=== PATIENT | male | born 1935 | race Caucasian/White ===

== ENCOUNTER 2019-02-10 15:00 | Inpatient (IN) | payer MEDICARE ==
[~2019-02-10] VITALS: Ht 182.9 cm; Wt 96.6 kg
[~2019-02-10 15:00] MED LIST: ACTOS30 MG PO; ACTOS45 MG PO; ADVAIR DISK1 INH; ALBUTEROL S2.5 MG/.5 IN; ALTACE10 MG PO; ALTACE5 MG PO; AUGMENTIN875TAB OR; BAYER LOW81 MG PO; CALCIUM 500 PO; CALCIUM500 M1 PO; CLORTAB PO; EQL ASPIRIN LOW81 M1 PO; FERRETTS325 MG PO; FOSAMAX PLUS PO; FOSAMAX10 MG PO; IRON325 MG PO; LYSINE1000 MG PO; METOPROL TAR25 MG PO; METOPROLOL TART25 MG PO; MULTI VIT PO; MULTIVITAMI1 PO; NITROQUICK0.4 MG; NITROSTAT0.4 MG SL; PEPCID PO; PEPCID20 MG PO; PLAVIX75 MG PO; PRAVACHOL80 MG PO; SIMVASTATIN40 MG PO; SYNTHROID100 MCG PO; TYLENOL500 MG PO; ZETIA10 MG PO
--- NOTE | 2019-02-10 15:30 | NUR ---
PT TO ROOM VIA WC ABLE TO TRANSFER SELF
--- NOTE | 2019-02-10 15:49 | NUR ---
PT RESTING QUIETLY ON STRETCHER.
[2019-02-10] MEDS ORDERED: PROAIR DIG108 MCG/AC IN (16:29)
[2019-02-10] MEDS ORDERED: CLOPIDOGREL75 MG PO (16:29)
[2019-02-10] MEDS ORDERED: ADVAIR DISK1 IN (16:30)
[2019-02-10] MEDS ORDERED: LIPITOR40 M1 PO (16:30)
--- NOTE | 2019-02-10 16:35 | NUR ---
WHILE TALKING TO PT, PT STATES THIS SOB HAS BEEN GOING ON FOR SEVERAL DAYS, ESPECIALLY WHEN UP AND WALKING, DENIES ANY CHEST PAIN, STATES THE ONLY TIME HE HAS CHEST PAIN IS AFTER HE HAS SNEEZED.
--- NOTE | 2019-02-10 16:36 | NUR ---
PT UP WALKING AROUND SATS 91%.
[2019-02-10 16:44] LABS: HEMATOCRIT 38.2 % (39.0-50.0); HEMOGLOBIN 12.2 g/dl (14.0-18.0); IMMATURE GRANULOCYTES 0.3 % (0.0-5.0); MEAN CELL VOLUME 88.6 fL CALC (80.0-100.0); MEAN CORPUSCULAR HGB 28.3 pG CALC (26.0-32.0); MEAN CORPUSCULAR HGB CONC 31.9 g/L CALC (32.0-36.0); NEUT# 6.46 thou/uL (1.82-7.42); RED BLOOD COUNT 4.31 mill/uL (4.70-6.10); RED CELL DISTRI WIDTH 13.6 % (11.5-15.5)
[2019-02-10 16:55] LABS: CREATININE 2.5 mg/dL (0.7-1.3)
[2019-02-10 16:56] LABS: POTASSIUM 5.4 mmol/l (3.5-5.1)
--- NOTE | 2019-02-10 17:52 | NUR ---
PT SITTING UP ON STRETCHER, WATCHING TV, NO CHEST PAIN, SATS REMAIN 94%.
--- NOTE | 2019-02-10 18:00 | NUR ---
IV FLUIDS INFUSING, FRIENDS VISITING WITH PT, PT IS LAUHGING AND TALKING WITH FRIENDS HE IS SITTING ON SIDE OF BED. DENIES ANY CHEST PAIN
--- NOTE | 2019-02-10 19:00 | NUR ---
REPORT GIVEN TO MED SURG FLOOR FOR CONTINUATION OF CARE
--- NOTE | 2019-02-10 19:30 | NUR ---
PATIENT TO FLOOR VIA WHEELCHAIR. ON MONITOR WITH RN
[2019-02-10 19:32] VITALS: BP 179/59
[2019-02-11] VITALS (9 sets, daily range): BP systolic 115–157; BP diastolic 38–58
--- NOTE | 2019-02-11 01:53 | NUR ---
ED CALLED ABOUT RHYTHM CHANGE AFIB, EKG ORDERED.
--- NOTE | 2019-02-11 02:30 | NUR ---
INFORMED DR. PACHECO OF THE NEW ONSET AFIB, AND PATIENT IS ASYMPTOMATIC, PATIENT STATED THAT HE DOES NOT KNOW HE HAD HX OF AFIB BEFORE, NO NEW ORDERS MADE AT THIS TIME, WILL CONTINUE TO MONITOR.
--- NOTE | 2019-02-11 03:54 | NUR ---
ED CALLED PATIENT HR 40'S, ASSESSED PATIENT WAS SLEEPING, APICAL HEART RATE 54BPM, DENIE PAIN OR DISCOMFORTS, CALLED ED PATIENT BACK TO HR 58.
--- NOTE | 2019-02-11 04:45 | NUR ---
APPLIED O2 @ 2LPM VIA NC AT THIS TIME, POX 90-91% ON RA, CRAKLES NOTED ON BOTH LOWER LOBES.
--- NOTE | 2019-02-11 06:33 | NUR ---
INFORMED ABOUT PATIENT NEW ONSET FOR AFIB, AND HEART RATE 40'S NO ORDERS MADE AT THIS TIME.
--- NOTE | 2019-02-11 07:00 | NUR ---
REPORT RECEIVED FROM ABE NGUYEN;PT RESTING IN SUPINE POSITION;INTRODUCED SELF TO PT AND POC DISCUSSED;RESPIRATIONS EVEN AND UNLABORED ON O2 @ 2L VIA NC;PT DENIES ANY CURRENT PAIN OR DISCOMCOFTRS;TELE MONITORING IN PLACE;PT ENCOURAGED TO CALL FOR ASSISTANCE IF NEEDED;FALL PRECAUTIONS IN PLACE WITH BED IN THE LOWEST POSITION AND CALL LIGHT IN REACH;WILL CONTINUE TO MONITOR
--- NOTE | 2019-02-11 08:00 | NUR ---
PT RESTING IN SEMI FOWLERS POSITION,A&O X3 AND HARD OF HEARING;VS OBTAINED AND ASSESSMENT COMPLETED;PT DENIES ANY CURRENT PAIN OR DISCOMFORTS,PAIN SCALE AND REPORTING EDUCATED;RESPIRATIONS EVEN AND UNLABORED,SHALLOW ON O2 @ 2L VIA NC,COARSE/CRACKLES NOTED AND NON-PRODUCTIVE COUGH AT TIMES;ABDOMEN SOFT ON PALPATION AND ACTIVE IN ALL 4 QUADRANTS;WEAK PEDAL PULSES;SKIN INTACT;TELE MONITORING IN PLACE;#20G TO RAC FLUSHED AND PATENT,SITE APPEARS HEALTHY;PT DENIES ANY ADDITIONAL NEEDS AT THIS TIME AND IS ENCOURAGED TO CALL FOR ASSISTANCE IF NEEDED;FALL PRECAUTIONS IN PLACE WITH BED IN THE LOWEST POSITION AND CALL LIGHT IN REACH;WILL CONTINUE TO MONITOR
--- NOTE | 2019-02-11 08:40 | NUR ---
PT TRANSPORTED TO [facility] IN STABLE CONDITION VIA WHEELCHAIR ACCOMPANIED BY VOLUNTEER.
--- NOTE | 2019-02-11 09:20 | NUR ---
PT ARRIVED BACK TO MED/SURG ROOM 271 IN STABLE CONDITION VIA WHEELCHAIR ACCOMPANIED BY VOLUNTEER.
[2019-02-11 11:00] LABS: HEMATOCRIT 33.7 % (39.0-50.0); HEMOGLOBIN 10.9 g/dl (14.0-18.0); MEAN CELL VOLUME 87.8 fL CALC (80.0-100.0); MEAN CORPUSCULAR HGB 28.4 pG CALC (26.0-32.0); MEAN CORPUSCULAR HGB CONC 32.3 g/L CALC (32.0-36.0); RED BLOOD COUNT 3.84 mill/uL (4.70-6.10); RED CELL DISTRI WIDTH 13.9 % (11.5-15.5)
[2019-02-11 11:26] LABS: CREATININE 2.6 mg/dL (0.7-1.3); MAGNESIUM 2.2 mg/dL (1.6-2.3)
--- NOTE | 2019-02-11 13:00 | NUR ---
PT RESTING IN SEMI FOWLERS POSITION;RESPIRATIONS EVEN AND UNLABORED ON O2 @ 2L VIA NC;PT DENIES ANY CURRENT PAIN BUT REQUESTS MEDICATION FOR GERD,BIBI SAUNDERS TO BE NOTIFIED OF REQUEST;TELE MONITORING IN PLACE;IV SITE PATENT;PT DENIES ANY ADDITIONAL NEEDS AT THIS TIME AND IS ENCOURAGED TO CALL FOR ASSISTANCE IF NEEDED;CALL LIGHT IN REACH;WILL CONTINUE TO MONITOR
--- NOTE | 2019-02-11 15:30 | NUR ---
PT RESTING IN SEMI FOWLERS POSITION;RESPIRATIONS EVEN AND UNLABORED ON O2 @ 2L VIA NC;PT DENIES ANY CURRENT PAIN OR DISCOMFORTS;TELE MONITORING IN PLACE;IV SITE PATENT;ASSESSMENT REMAINS UNCHANGED AT THIS TIME;FALL PRECAUTIONS IN PLACE WITH BED IN THE LOWEST POSITION AND CALL LIGHT IN REACH;WILL CONTINUE TO MONITOR
--- NOTE | 2019-02-11 19:30 | NUR ---
REPORT FROM YUVAL DALTON. PT RESTING IN BED WATCHING TV. NO APPARENT DISTRESS NOTED. PT ALERT AND ORIENTED. DENIES ANY PAIN OR DISCOMFORT. IV SITE APPEARS HEALTHY. TOMATO GRADER IN PLACE. DISCUSSED POC. PT VERBALIZED UNDERSTANDING. CALL LIGHT WITHIN REACH. WILL CONTINUE TO MONITOR.
--- NOTE | 2019-02-11 23:22 | NUR ---
PT RESTING IN BED WITH EYES CLOSED. NO APPARENT DISTRESS NOTED. CALL LIGHT WITHIN REACH. WILL CONTINUE TO MONITOR.
[2019-02-12 00:30] VITALS: BP 142/68
--- NOTE | 2019-02-12 03:02 | NUR ---
PT RESTING IN BED WITH EYES CLOSED. NO APPARENT DISTRESS NOTED. CALL LIGHT WITHIN REACH. WILL CONTINUE TO MONITOR.
[2019-02-12 04:00] VITALS: BP 129/54
[2019-02-12 04:48] LABS: HEMATOCRIT 31.6 % (39.0-50.0); HEMOGLOBIN 10.3 g/dl (14.0-18.0); IMMATURE GRANULOCYTES 0.3 % (0.0-5.0); MEAN CELL VOLUME 87.5 fL CALC (80.0-100.0); MEAN CORPUSCULAR HGB 28.5 pG CALC (26.0-32.0); MEAN CORPUSCULAR HGB CONC 32.6 g/L CALC (32.0-36.0); NEUT# 4.42 thou/uL (1.82-7.42); RED BLOOD COUNT 3.61 mill/uL (4.70-6.10); RED CELL DISTRI WIDTH 13.9 % (11.5-15.5)
[2019-02-12 05:09] LABS: CREATININE 2.5 mg/dL (0.7-1.3); MAGNESIUM 2.1 mg/dL (1.6-2.3); POTASSIUM 4.1 mmol/l (3.5-5.1)
[2019-02-12 08:00] VITALS: BP 138/57
--- NOTE | 2019-02-12 09:00 | NUR ---
ASSESSMENT IS COMPLETED: IV SITE IS FREE FROM REDNESS OR EDMEA. HR IS IRREG, PULSES ARE STRONG X4, ABD IS SOFT WITH ACTIVE BS. BREATH SOUNDS ARE COARSE AND CLEAR, TELE MONITOR IN PLACE.
--- NOTE | 2019-02-12 09:57 | NUR ---
PATIENT PERFORMED GAIT TRAINING, 400 FEET, SBA FOR SAFETY. PT INSTRUCTED TO INCORPORATE DDBE TO SUSTAIN PROLONGED AMBULATION WITHOUT S/SX OF SOB. PT ALSO EDUCATED PATIENT ON PACING TECHNIQUE FOR SAFETY. AMPA = 19
[2019-02-12 11:30] VITALS: BP 129/60
--- NOTE | 2019-02-12 12:50 | NUR ---
PT IS RELAXING IN BED WITH NO DISTRESS NTOED. IV SITE WAS RESTARTED BY Jeanine FISH WITH 22 IN RFA. AFTER 2 UNSUCCESSFUL ATTENPTS. CONITNUE TO OBSERVE AND MONITOR.
[2019-02-12 15:10] VITALS: BP 120/58
[2019-02-12] MEDS ORDERED: TOPROL XL25 M1 PO (16:09)
[2019-02-12] MEDS ORDERED: ELIQUIS2.5 MG PO (16:09)
[2019-02-12] MEDS ORDERED: JANUVIA25 MG PO (16:09)
--- NOTE | 2019-02-12 16:30 | NUR ---
PT IS ATTEMPTING TO REACH SOMEONE TO PICK HIM UP FOR DISCHARGE. CONTINUE TO OSBERVE AND MONITOR.
--- NOTE | 2019-02-12 17:19 | NUR ---
PT'S IV SITE DISCONTINUED CATHETER INTACT. NO REDNESS OR EDEMA. DISCHARGE INSTRUCTIONS GIVEN AND VERBALIZED UNDERSTANDING. Discharge instructions given. Patient verbalizes understanding of same. Discharged in stable condition via Wheelchair to Home with family. All belongings sent with pt.
== END 2019-02-12 17:09 | disposition home or self-care (01) | DRG 309 ==
LOC: ED 15:00 → ED-I 18:19 → ED 18:32 → MS2 18:33
PROVIDERS: Family Medicine; Nurse Practitioner Family; ADMIT Internal Medicine; ATTEND Internal Medicine
DX: I48.91 Unspecified atrial fibrillation (principal); N18.4 Chronic kidney disease, stage 4 (severe); J06.9 Acute upper respiratory infection, unspecified; I12.9 Hypertensive chronic kidney disease with stage 1 through stage 4 chronic kidney disease, or unspecified chronic kidney disease; E11.22 Type 2 diabetes mellitus with diabetic chronic kidney disease; D63.1 Anemia in chronic kidney disease; E11.65 Type 2 diabetes mellitus with hyperglycemia; R00.1 Bradycardia, unspecified; E78.5 Hyperlipidemia, unspecified; I25.10 Atherosclerotic heart disease of native coronary artery without angina pectoris; E03.9 Hypothyroidism, unspecified; H91.90 Unspecified hearing loss, unspecified ear; Z95.5 Presence of coronary angioplasty implant and graft; Z87.891 Personal history of nicotine dependence; Z95.1 Presence of aortocoronary bypass graft; Z95.3 Presence of xenogenic heart valve
CPT/HCPCS: G0378

== ENCOUNTER 2019-04-11 09:10 | Inpatient (IN) | payer MEDICARE ==
[~2019-04-11] VITALS: Ht 182.9 cm; Wt 95.0 kg
[2019-04-11] VITALS (12 sets, daily range): BP systolic 148–200; BP diastolic 67–103
[~2019-04-11 09:10] MED LIST changes: +ADVAIR DISK1 IN; +CLOPIDOGREL75 MG PO; +ELIQUIS2.5 MG PO; +JANUVIA25 MG PO; +LIPITOR40 M1 PO; +PROAIR DIG108 MCG/AC IN; +TOPROL XL25 M1 PO
[2019-04-11 09:40] LABS: IMMATURE GRANULOCYTES 0.2 % (0.0-5.0); MEAN CELL VOLUME 88.3 fL CALC (80.0-100.0); MEAN CORPUSCULAR HGB 28.1 pG CALC (26.0-32.0); MEAN CORPUSCULAR HGB CONC 31.8 g/L CALC (32.0-36.0); NEUT# 3.05 thou/uL (1.82-7.42); RED BLOOD COUNT 4.52 mill/uL (4.70-6.10); RED CELL DISTRI WIDTH 14.7 % (11.5-15.5)
[2019-04-11 09:42] LABS: HEMATOCRIT 39.9 % (39.0-50.0); HEMOGLOBIN 12.7 g/dl (14.0-18.0)
[2019-04-11 09:53] LABS: ALBUMIN 3.8 g/dL (3.2-5.0); POTASSIUM 4.6 mmol/l (3.5-5.1); TOTAL PROTEIN 6.7 g/dL (6.3-8.2)
[2019-04-11 09:55] LABS: BILIRUBIN, TOTAL 0.8 mg/dL (0.0-1.4)
[2019-04-11 19:55] LABS: URINE BILIRUBIN - DIPSTICK NEGATIVE (NEGATIVE); URINE BLOOD DIPSTICK SMALL (NEGATIVE); URINE CLARITY CLEAR; URINE COLOR YELLOW; URINE GLUCOSE - DIPSTICK NEGATIVE (NEGATIVE); URINE KETONE NEGATIVE (NEGATIVE); URINE LEUK ESTERASE NEGATIVE (Negative); URINE NITRITE - DIPSTICK NEGATIVE (Negative); URINE PH 5.5 (4.5-8.0); URINE PROTEIN - DIPSTICK >=300 mg/dL (NEG-TRACE); URINE SPECIFIC GRAVITY 1.025; URINE UROBILINOGEN - DIPSTICK 0.2 E.U./dL (0.2)
[2019-04-11 20:07] LABS: URINE SQUAMOUS EPITHELIAL CELL FEW EPI/hpf (0-FEW)
[2019-04-12] VITALS (54 sets, daily range): BP systolic 128–190; BP diastolic 57–106
[2019-04-12 08:06] LABS: HEMATOCRIT 35.2 % (39.0-50.0); HEMOGLOBIN 11.2 g/dl (14.0-18.0); IMMATURE GRANULOCYTES 0.2 % (0.0-5.0); MEAN CELL VOLUME 87.3 fL CALC (80.0-100.0); MEAN CORPUSCULAR HGB 27.8 pG CALC (26.0-32.0); MEAN CORPUSCULAR HGB CONC 31.8 g/L CALC (32.0-36.0); NEUT# 5.87 thou/uL (1.82-7.42); RED BLOOD COUNT 4.03 mill/uL (4.70-6.10); RED CELL DISTRI WIDTH 14.6 % (11.5-15.5)
[2019-04-13 04:33] VITALS: BP 153/75
[2019-04-13 08:25] VITALS: BP 163/79
[2019-04-13 08:45] LABS: HEMATOCRIT 33.9 % (39.0-50.0); HEMOGLOBIN 11.1 g/dl (14.0-18.0); MEAN CELL VOLUME 86.9 fL CALC (80.0-100.0); MEAN CORPUSCULAR HGB 28.5 pG CALC (26.0-32.0); MEAN CORPUSCULAR HGB CONC 32.7 g/L CALC (32.0-36.0); RED BLOOD COUNT 3.9 mill/uL (4.70-6.10); RED CELL DISTRI WIDTH 14.8 % (11.5-15.5)
[2019-04-13 09:26] LABS: CREATININE 2.2 mg/dL (0.7-1.3); MAGNESIUM 2.2 mg/dL (1.6-2.3); POTASSIUM 4.2 mmol/l (3.5-5.1)
[2019-04-13 11:45] VITALS: BP 139/70
[2019-04-13 16:00] VITALS: BP 141/63
[2019-04-13 19:15] VITALS: BP 136/58
[2019-04-13 23:36] VITALS: BP 141/65
[2019-04-14 04:38] VITALS: BP 147/48
[2019-04-14 05:41] LABS: HEMATOCRIT 32.3 % (39.0-50.0); HEMOGLOBIN 10.3 g/dl (14.0-18.0); MEAN CELL VOLUME 87.8 fL CALC (80.0-100.0); MEAN CORPUSCULAR HGB CONC 31.9 g/L CALC (32.0-36.0); RED BLOOD COUNT 3.68 mill/uL (4.70-6.10); RED CELL DISTRI WIDTH 14.9 % (11.5-15.5)
[2019-04-14 05:44] LABS: PROTHROMBIN TIME 10.7 SECONDS (9.0-12.5)
[2019-04-14 05:52] LABS: CREATININE 2.3 mg/dL (0.7-1.3); POTASSIUM 3.8 mmol/l (3.5-5.1)
[2019-04-14 09:30] VITALS: BP 127/65
[2019-04-14 10:50] VITALS: BP 122/64
[2019-04-14 15:48] VITALS: BP 131/66
[2019-04-14 19:23] VITALS: BP 125/59
[2019-04-15 00:07] VITALS: BP 143/66
[2019-04-15 04:50] VITALS: BP 146/66
[2019-04-15 05:51] LABS: CREATININE 2.2 mg/dL (0.7-1.3)
[2019-04-15 05:58] LABS: ALBUMIN 2.7 g/dL (3.2-5.0)
[2019-04-15 07:24] VITALS: BP 125/65
[2019-04-15 11:32] VITALS: BP 126/61
[2019-04-15 14:55] VITALS: BP 136/59
[2019-04-15 19:35] VITALS: BP 143/58
[2019-04-16 00:12] VITALS: BP 125/49
[2019-04-16 03:33] VITALS: BP 165/66
[2019-04-16 05:15] LABS: HEMATOCRIT 30.4 % (39.0-50.0); HEMOGLOBIN 9.6 g/dl (14.0-18.0); MEAN CELL VOLUME 87.9 fL CALC (80.0-100.0); MEAN CORPUSCULAR HGB 27.7 pG CALC (26.0-32.0); MEAN CORPUSCULAR HGB CONC 31.6 g/L CALC (32.0-36.0); RED BLOOD COUNT 3.46 mill/uL (4.70-6.10); RED CELL DISTRI WIDTH 14.6 % (11.5-15.5)
[2019-04-16 05:42] LABS: CREATININE 2.3 mg/dL (0.7-1.3); MAGNESIUM 2.3 mg/dL (1.6-2.3); POTASSIUM 4.2 mmol/l (3.5-5.1)
[2019-04-16 07:39] VITALS: BP 155/72
[2019-04-16] MEDS ORDERED: AMLODIPINE BESYL5 MG PO (10:27)
[2019-04-16] MEDS ORDERED: LASIX 40 MG TAB40 MG PO (10:30)
[2019-04-16 10:32] VITALS: BP 149/66
== END 2019-04-16 12:30 | disposition home or self-care (01) | DRG 291 ==
LOC: ED 09:10 → ED-I 09:56 → ED 12:34 → MS2 12:35 → ICU 12:35 → MS2 04-12 13:13
PROVIDERS: Family Medicine; Internal Medicine Nephrology; Nurse Practitioner Family; ADMIT Internal Medicine; ATTEND Internal Medicine
DX: I13.0 Hypertensive heart and chronic kidney disease with heart failure and stage 1 through stage 4 chronic kidney disease, or unspecified chronic kidney disease (principal); I50.31 Acute diastolic (congestive) heart failure; J18.9 Pneumonia, unspecified organism; N17.9 Acute kidney failure, unspecified; I48.19 Other persistent atrial fibrillation; E87.1 Hypo-osmolality and hyponatremia; E11.22 Type 2 diabetes mellitus with diabetic chronic kidney disease; N18.3 Chronic kidney disease, stage 3 (moderate); I25.10 Atherosclerotic heart disease of native coronary artery without angina pectoris; I49.5 Sick sinus syndrome; D63.1 Anemia in chronic kidney disease; E78.5 Hyperlipidemia, unspecified; E03.9 Hypothyroidism, unspecified; I25.5 Ischemic cardiomyopathy; I25.2 Old myocardial infarction; Z95.3 Presence of xenogenic heart valve; Z87.891 Personal history of nicotine dependence; Z79.01 Long term (current) use of anticoagulants; Z95.5 Presence of coronary angioplasty implant and graft; Z95.1 Presence of aortocoronary bypass graft; Z79.82 Long term (current) use of aspirin
CPT/HCPCS: G0378; J0692; Q9967

== ENCOUNTER 2021-03-08 01:46 | Observation (INO) | payer MEDICARE ==
[~2021-03-08] VITALS: Ht 182.9 cm; Wt 84.0 kg
[~2021-03-08 01:46] MED LIST changes: +AMLODIPINE BESYL5 MG PO; +LASIX 40 MG TAB40 MG PO
--- NOTE | 2021-03-08 01:46 | NUR ---
PT TO ROOM 6 IN ER VIA EMS.
[2021-03-08 02:27] LABS: HEMATOCRIT 37.3 % (39.0-50.0); HEMOGLOBIN 11.9 g/dl (14.0-18.0); IMMATURE GRANULOCYTES 0.4 % (0.0-5.0); MEAN CORPUSCULAR HGB 28.4 pG CALC (26.0-32.0); MEAN CORPUSCULAR HGB CONC 31.9 g/dL CAL (32.0-36.0); NEUT# 6.14 thou/uL (1.82-7.42); RED BLOOD COUNT 4.19 mill/uL (4.70-6.10); RED CELL DISTRI WIDTH 14.9 % (11.5-15.5)
[2021-03-08 02:40] LABS: BILIRUBIN, TOTAL 0.7 mg/dL (0.0-1.4); CREATININE 3.8 mg/dL (0.7-1.3); POTASSIUM 4.7 mmol/l (3.5-5.1); TOTAL PROTEIN 7.3 g/dL (6.3-8.2)
[2021-03-08 02:56] LABS: ALBUMIN 3.9 g/dL (3.2-5.0)
--- NOTE | 2021-03-08 05:00 | NUR ---
RESTING. RESP SOMEWHAT EASIER.
--- NOTE | 2021-03-08 06:00 | NUR ---
PT AWAKE IN ROOM. GINGERALE GIVEN.
[2021-03-08 06:38] LABS: URINE BILIRUBIN - DIPSTICK NEGATIVE (NEGATIVE); URINE BLOOD DIPSTICK TRACE-INTACT (NEGATIVE); URINE COLOR YELLOW; URINE GLUCOSE - DIPSTICK NEGATIVE (NEGATIVE); URINE KETONE NEGATIVE (NEGATIVE); URINE LEUK ESTERASE NEGATIVE (NEGATIVE); URINE PH 6.5 (4.5-8.0); URINE PROTEIN - DIPSTICK 30 mg/dL (NEG-TRACE); URINE SPECIFIC GRAVITY 1.015; URINE UROBILINOGEN - DIPSTICK 0.2 E.U./dL (0.2)
[2021-03-08 06:39] LABS: URINE NITRITE - DIPSTICK NEGATIVE (Negative)
--- NOTE | 2021-03-08 07:00 | NUR ---
RECEIVED REPORT FROM DAVID FISH
[2021-03-08 07:05] LABS: URINE BACTERIA FEW hpf; URINE EPITHELIAL CELLS FEW EPI/hpf (0-FEW)
--- NOTE | 2021-03-08 09:18 | NUR ---
DR JIMENEZ AT BEDSIDE TO DISCUSS RESULTS AND POC
[2021-03-08] MEDS ORDERED: FAMOTIDINE20 M1 PO (11:39)
[2021-03-08] MEDS ORDERED: NORVASC5 M1 PO (11:39)
[2021-03-08] MEDS ORDERED: JANUVIA25 MG PO (11:39)
[2021-03-08] MEDS ORDERED: L-LYSINE500 M3 PO (11:40)
[2021-03-08] MEDS ORDERED: CHLOR-TRIMETON4 MG PO (11:40)
[2021-03-08] MEDS ORDERED: FLOVENT DI50 MCG/BLI IN (11:41)
[2021-03-08] MEDS ORDERED: MECLIZINE25 MG PO (11:42)
[2021-03-08] MEDS ORDERED: PROAIR RES108 MCG/AC IN (11:43)
[2021-03-08] MEDS ORDERED: ISOSORB MONO30 MG PO (11:43)
[2021-03-08] MEDS ORDERED: TORSEMIDE20 M1 PO (11:44)
[2021-03-08] MEDS ORDERED: TOPROL XL25 M1 PO (11:44)
--- NOTE | 2021-03-08 12:42 | NUR ---
RESTING QUIETLY WITH EYES CLOSED, AWAKENS EASILY, DENIES NEEDS AT THIS TIME. CALL LIGHT WITHIN REACH
--- NOTE | 2021-03-08 13:13 | NUR ---
REPORT RECIEVED FROM ANILA
--- NOTE | 2021-03-08 13:29 | NUR ---
REPORT CALLED TO ANTHONY FISH
--- NOTE | 2021-03-08 14:04 | NUR ---
PT ARRIVED TO UNIT AT THIS TIME. VIA STRETCHER WITH ABE HORNE. ORIENTATED PT TO ROOM. PT IS VERY HARD OF HEARING. SAYS HE HAS HEARING AIDES AT HOME. DID NOT BRING IT WITH HIM. ASSESSMENT AND VITALS WERE DONE AT THIS TIME. PT IS A&OX3, LUNG SOUNDS ARE CLEAR UPPER/LOWER LOBES ANTERIOR AND POSTERIOR. HEART SOUNDS ARE IRREGULAR. TELE MONITOR IS IN PLACE. UNIT# [id number]. CONTINOUS MONITORING BY ED. CORWIN SOUNDS ACTIVE X4. RADIAL PULSES STRONG BILATERALLY PEDAL PULSE STRONG BILATERALLY. IV LOCATED ON THE LA 16G, FLUSHED WITH NO RESISTANCE. SKIN IS WD. PT STATES NO PAIN AT THIS TIME. STATES NO OTHER NEEDS AT THIS TIME. CALL LIGHT WITHIN REACH. FALL/SAFTEY PRECAUTIONS IN PLACE.
--- NOTE | 2021-03-08 14:05 | NUR ---
TO MED SURG VIA STRETCHER, TELE MONITOR IN PLACE.
[2021-03-08 15:00] VITALS: BP 142/69
[2021-03-08 19:00] VITALS: BP 119/61
--- NOTE | 2021-03-08 20:00 | NUR ---
PHYSICAL ASSESMENT COMPLETE. PT C/O COUGHING WILL; WILL PROVIDE PRN ROBITUSSIN. SCHEDULED MEDICATIONS AND PRN MEDICATION ADMINISTERED, SEE E-MAR. PT DENIES ANY NEEDS AT THIS TIME. PLAN OF CARE REVIEWED, PT DENIES QUESTIONS, VERBALIZES UNDERSTANDING. ITEMS WITHIN REACH, BED LOCKED IN LOW POSITION W/ BEDRAILS UP X2. CALL WHITESIDE WITHIN REACH, AGREES TO CALL PRN.
--- NOTE | 2021-03-08 22:29 | NUR ---
PHYSICAL ASSESMENT COMPLETE. PT CURRENTLY DENIES PAIN OR DISCOMFORT. SCHEDULED MEDICATIONS AND PRN MEDICATION ADMINISTERED, SEE E-MAR. PT DENIES ANY NEEDS AT THIS TIME. PLAN OF CARE REVIEWED, PT DENIES QUESTIONS, VERBALIZES UNDERSTANDING. ITEMS WITHIN REACH, BED LOCKED IN LOW POSITION W/ BEDRAILS UP X2. CALL WHITESIDE WITHIN REACH, AGREES TO CALL PRN.
[2021-03-09] VITALS: BP 126/65
--- NOTE | 2021-03-09 02:42 | NUR ---
PT LAYING IN BED WITH EYES CLOSED, APPEARS TO BE SLEEPING, APPEARS COMFORTABLE AND IN NO DISTRESS. RESPIRATIONS REGULAR AND UNLABORED. ITEMS REMAIN WITHIN REACH, CALL WHITESIDE REMAINS WITHIN REACH. BED REMAINS LOCKED AND IN LOW POSITION WITH BEDRAILS UP X2. WILL CONTINUE TO MONITOR.
[2021-03-09 04:00] VITALS: BP 124/60
[2021-03-09 06:26] LABS: HEMATOCRIT 35.8 % (39.0-50.0); HEMOGLOBIN 11.5 g/dl (14.0-18.0); MEAN CELL VOLUME 89.1 fL CALC (80.0-100.0); MEAN CORPUSCULAR HGB 28.6 pG CALC (26.0-32.0); MEAN CORPUSCULAR HGB CONC 32.1 g/dL CAL (32.0-36.0); RED BLOOD COUNT 4.02 mill/uL (4.70-6.10)
[2021-03-09 06:38] LABS: CHOLESTEROL HDL RATIO 2.9 (<4.4 (CALC)); CREATININE 3.5 mg/dL (0.7-1.3); MAGNESIUM 2.3 mg/dL (1.6-2.3); POTASSIUM 4.3 mmol/l (3.5-5.1)
--- NOTE | 2021-03-09 08:00 | NUR ---
PT AWAKE IN SEMI STEPHENS POSITION. PT IS A&O X3. HARD OF HEARING. LUNG SOUNDS ARE CLEAR UPPER LOWER LOBES ANTERIOR AND POSTERIOR. HEART SOUNDS ARE IRREGULAR. TELE MONITOR IN PLACE, CONTINOUS MONITORING BY ED. STATES NO PAIN AT THIS TIME. BOWEL SOUNDS ACTIVE X4. SKIN WDI. RADIAL AND PEDAL PULSE STRONG. PT IS ON RA. FALL/SAFTEY PRECAUTIONS IN PLACE. CALL LIGHT WITHIN REACH.
--- NOTE | 2021-03-09 09:06 | NUR ---
Patient is screened for PT intervention and may benefit frtrom PT consult if medical agrees
[2021-03-09 11:06] VITALS: BP 122/64
--- NOTE | 2021-03-09 12:00 | NUR ---
PT WATCHING TV AT THIS TIME. STATES NO PAIN. SPOKE WITH ON THE PHONE SAYS SHE WILL BRING HIS HEARING AIDES IN. TELE MONITOR IS IN PLACE. CALL LIGHT IS WITHIN REACH. IV PATENT. FALL/SAFTEY PRECAUTIONS IN PLACE.
[2021-03-09 15:21] VITALS: BP 132/66
--- NOTE | 2021-03-09 16:00 | NUR ---
NEW IV ESTABLISHED RH 22G BY KRYSTLE HUNTER. FLUSHED, ABLE TO GET BLOOD RETURN. PT STATES NO PAIN AT THIS TIME. TELE MONITOR IN PLACE. FALL/SAFTEY PRECAUTIONS IN PLACE. CALL LIGHT WITHIN REACH
[2021-03-09 18:56] VITALS: BP 125/65
--- NOTE | 2021-03-09 22:00 | NUR ---
PT RESTING IN BED WATCHING TV, NO SIGNS OF DISTRESS NOTED, RESP EVEN AND UNLABORED. PT ALERT AND ORIENTED X3, BUT ROBIN[place], DISCUSSED POC. PT DENIES ANY NEEDS OR COMPLAINTS AT THIS TIME, PT ON RA, ASSESSMENT REVIEW COMPLETED, CALL LIGHT IN REACH,CONTINUE TO MONITOR.
--- NOTE | 2021-03-10 | NUR ---
PT RESTING IN BED WATCHING TV, NO SIGNS OF DISTRESS NOTED, RESP EVEN AND UNLABORED. VOICES NO NEEDS OR COMPLAINTS AT THIS TIME, CALL LIGHT IN REACH,CONTINUE TO MONITOR.
[2021-03-10 00:02] VITALS: BP 133/68
[2021-03-10 03:54] VITALS: BP 154/74
--- NOTE | 2021-03-10 04:00 | NUR ---
AM VITALS OBTAINED, NO SIGNS OF DISTRESS NOTED, RESP EVEN AND UNLABORED. FRESH WATER PROVIDED. VOICES NO NEEDS OR COMPLAITS AT THIS TIME, CALL LIGHT IN REACH, CONTINUE TO MONITOR.
[2021-03-10 05:18] LABS: HEMATOCRIT 32.5 % (39.0-50.0); HEMOGLOBIN 10.5 g/dl (14.0-18.0); MEAN CELL VOLUME 86.9 fL CALC (80.0-100.0); MEAN CORPUSCULAR HGB 28.1 pG CALC (26.0-32.0); MEAN CORPUSCULAR HGB CONC 32.3 g/dL CAL (32.0-36.0); RED BLOOD COUNT 3.74 mill/uL (4.70-6.10)
[2021-03-10 05:34] LABS: CREATININE 3.2 mg/dL (0.7-1.3); MAGNESIUM 2.2 mg/dL (1.6-2.3); POTASSIUM 4.4 mmol/l (3.5-5.1)
[2021-03-10 07:48] VITALS: BP 144/72
[2021-03-10 10:10] VITALS: BP 158/80
--- NOTE | 2021-03-10 10:15 | NUR ---
PT IS AWAKE, ALERT, ORIENTED X 3. LUNGS CLEAR, RA. NO COMPLAINT OF SHORTNESS OF BREATH. PT SEEN BY DR JIMENEZ AND MILADIS MONTEZ, IS IMPROVING BUT NOT ENOUGH TO GO HOME YET. NS STARTED AT 50 ML/HR PER ORDER.
--- NOTE | 2021-03-10 13:08 | NUR ---
PT CONTINUES AMBULATORY IN ROOM WITHOUT DISTRESS. NO SHORTNESS OF BREATH.
[2021-03-10 15:23] VITALS: BP 154/72
--- NOTE | 2021-03-10 16:10 | NUR ---
PT SEEN RESTING IN BED WITH EYES CLOSED, NO DISTRESS OR COMPLAINTS.
--- NOTE | 2021-03-10 19:50 | NUR ---
PATIENT ALERT AND ORIENTED. HARD OF HEARING. NEED TO SPEAK TOWARD HIS LEFT EAR. NO COMPLAINTS VOICED. ASSESSMENT COMPLETE. #22 IV IN RT HAND RUNNING NS @ 30. CALL LIGHT AND BELONGINGS REMAIN IN REACH.
[2021-03-10 20:00] VITALS: BP 148/72
--- NOTE | 2021-03-10 21:22 | NUR ---
NOTIFIED MD OF PATIENTS BS OF 407. NO NEW ORDERS AT THIS TIME.
--- NOTE | 2021-03-11 00:15 | NUR ---
PATIENT RESTING IN BED QUIETLY. NO COMPLAINTS VOICED AT THIS TIME. NO SOB. CALL LIGHT AND BELONGINGS REMAIN IN REACH.
[2021-03-11 00:30] VITALS: BP 140/72
--- NOTE | 2021-03-11 02:30 | NUR ---
NOTIFIED MD OF PATIENTS TELEMETRY READING, READING AFIB/AFLUTTER. PROVIDER ALREADY AWARE.
[2021-03-11 04:00] VITALS: BP 140/68
--- NOTE | 2021-03-11 05:22 | NUR ---
RESTING IN BED SITTING UP. ''I FEEL SO MUCH BETTER AND I GOT SLEEP LASTNIGHT''. NO COMPLAINTS VOICED. CALL LIGHT AND BELONGINGS REMAIN IN REACH.
[2021-03-11 07:13] LABS: HEMATOCRIT 32.6 % (39.0-50.0); HEMOGLOBIN 10.4 g/dl (14.0-18.0); MEAN CELL VOLUME 88.3 fL CALC (80.0-100.0); MEAN CORPUSCULAR HGB 28.2 pG CALC (26.0-32.0); MEAN CORPUSCULAR HGB CONC 31.9 g/dL CAL (32.0-36.0); RED BLOOD COUNT 3.69 mill/uL (4.70-6.10)
[2021-03-11 07:22] LABS: CARBON DIOXIDE 22 mmol/l (22-30); CHLORIDE 105 mmol/l (95-108); CREATININE 2.9 mg/dL (0.7-1.3); GFR 21 ML/MIN (>=60 (CALC)); GFR FOR AFR.AMER. 25 ML/MIN (>=60 (CALC)); POTASSIUM 4.6 mmol/l (3.5-5.1); SODIUM 135 mmol/l (137-146)
[2021-03-11 07:23] LABS: BUN 101 mg/dL (8-23)
[2021-03-11 07:28] LABS: CREATININE 2.9 mg/dL (0.7-1.3); MAGNESIUM 2.4 mg/dL (1.6-2.3); POTASSIUM 4.7 mmol/l (3.5-5.1)
[2021-03-11 07:55] VITALS: BP 144/68
--- NOTE | 2021-03-11 07:55 | NUR ---
PT RESTING IN BED, NO SIGNS OF DISTRESS NOTED, RESP EVEN AND UNLABORED. PT [facility], DISCUSSED POC, PT AGREED. PT ALERT AND ORIENTED X3, MEDICATED PER MAR, ASSESSMENT REVIEW COMPLETED, CALL LIGHT IN REACH,CONTINUE TO MONITOR.
--- NOTE | 2021-03-11 09:26 | NUR ---
PT RESTING IN BED, NO SIGNS OF DISTRESS NOTED, DISCUSSED IV VENOFER AND NEW DIURETIC. CALL LIGHT IN REACH,CONTINUE TO MONITOR.
--- NOTE | 2021-03-11 11:40 | NUR ---
PT RESTING IN BED, NO SIGNS OF DISTRESS NOTED, RESP EVEN AND UNLABORED. LUNCH PROVIDED, ENCOURAGED PT TO GET OUT OF BED, PT STATES,"MAYBE LATER". PT MEDICATED PER MAR, CALL LIGHT IN REACH,CONTINUE TO MONITOR.
[2021-03-11 11:50] VITALS: BP 144/69
--- NOTE | 2021-03-11 14:15 | NUR ---
PT RESTING IN BED, NO SIGNS OF DISTRESS NOTED, RESP EVEN AND UNLABORED. INCENTIVE SPIROMETER BROUGHT TO BEDSIDE, PROVIDED TEACHING PT ABLE TO REACH 1500ML VOLUME, PT VOICES NO NEEDS OR COMPLAINTS AT THIS TIME, CALL LIGHT IN REACH,CONTINUE TO MONITOR.
[2021-03-11 16:42] VITALS: BP 148/70
--- NOTE | 2021-03-11 19:25 | NUR ---
PATIENT RESTING IN BED QUIETLY, WATCHING TV. NO COMPLAINTS VOICED AT THIS TIME. ASSESSMENT COMPLETE. CALL LIGHT AND BELONGINGS REMAIN IN REACH.
[2021-03-11 20:00] VITALS: BP 157/74
[2021-03-12] VITALS: BP 144/72
--- NOTE | 2021-03-12 00:20 | NUR ---
PATIENT RESTING IN BED QUIETLY. NO COMPLAINTS VOICED AT THIS TIME. NO SIGNS OF DISTRESS. NO COMPLAINTS OF PAIN. CALL LIGHT AND BELONGINGS REMAIN IN REACH.
[2021-03-12 04:00] VITALS: BP 140/63
[2021-03-12 05:37] LABS: MEAN CELL VOLUME 87.6 fL CALC (80.0-100.0); MEAN CORPUSCULAR HGB 28.2 pG CALC (26.0-32.0); MEAN CORPUSCULAR HGB CONC 32.3 g/dL CAL (32.0-36.0); NEUT# 3.76 thou/uL (1.82-7.42); RED BLOOD COUNT 3.54 mill/uL (4.70-6.10); RED CELL DISTRI WIDTH 15.1 % (11.5-15.5)
[2021-03-12 05:57] LABS: ALBUMIN 2.8 g/dL (3.2-5.0); BILIRUBIN, TOTAL 0.5 mg/dL (0.0-1.4); CREATININE 3.2 mg/dL (0.7-1.3); POTASSIUM 3.9 mmol/l (3.5-5.1)
[2021-03-12 06:31] LABS: TOTAL PROTEIN 5.5 g/dL (6.3-8.2)
--- NOTE | 2021-03-12 06:40 | NUR ---
CRITICAL LAB CALLED FROM LAB [facility]. SECURITIES LENDING TRADER PROVIDER CALLED AND AWARE.
[2021-03-12 08:30] VITALS: BP 143/71
[2021-03-12 10:30] VITALS: BP 158/75
[2021-03-12] MEDS ORDERED: ZITHROMAX250 MG PO (11:36)
== END 2021-03-12 15:27 | disposition home or self-care (01) ==
LOC: ED 01:46 → ED-I 03:24 → ED 03:52 → ED-I 03:53 → MS2 13:22
PROVIDERS: Emergency Medicine; Internal Medicine Nephrology; Nurse Practitioner; ADMIT Internal Medicine; ATTEND Internal Medicine
PROC: XW033E5 Introduction of Remdesivir Anti-infective into Peripheral Vein, Percutaneous Approach, New Technology Group 5 (ICD-10-PCS; principal; 2021-03-09)
DX: U07.1 COVID-19 (principal); I13.0 Hypertensive heart and chronic kidney disease with heart failure and stage 1 through stage 4 chronic kidney disease, or unspecified chronic kidney disease; I50.9 Heart failure, unspecified; N17.0 Acute kidney failure with tubular necrosis; E11.22 Type 2 diabetes mellitus with diabetic chronic kidney disease; J96.21 Acute and chronic respiratory failure with hypoxia; I48.19 Other persistent atrial fibrillation; E87.1 Hypo-osmolality and hyponatremia; N18.4 Chronic kidney disease, stage 4 (severe); E78.5 Hyperlipidemia, unspecified; I25.10 Atherosclerotic heart disease of native coronary artery without angina pectoris; J45.909 Unspecified asthma, uncomplicated; D63.1 Anemia in chronic kidney disease; E03.9 Hypothyroidism, unspecified; I25.5 Ischemic cardiomyopathy; I25.2 Old myocardial infarction; Z95.1 Presence of aortocoronary bypass graft; Z95.5 Presence of coronary angioplasty implant and graft; Z95.2 Presence of prosthetic heart valve; Z87.891 Personal history of nicotine dependence; Z79.01 Long term (current) use of anticoagulants
CPT/HCPCS: J1756

== ENCOUNTER 2021-12-07 11:21 | Inpatient (IN) | payer MEDICARE ==
[2021-12-07] VITALS (34 sets, daily range): BP systolic 93–161; BP diastolic 62–121
[~2021-12-07] VITALS: Ht 182.9 cm; Wt 89.9 kg
[~2021-12-07 11:21] MED LIST changes: +CHLOR-TRIMETON4 MG PO; +DEMADEX10 MG PO; +FAMOTIDINE20 M1 PO; +FLONASE AL50 MCG/ACT; +ISOSORB MONO30 MG PO; +L-LYSINE500 M3 PO; +MECLIZINE25 MG PO; +NORVASC5 M1 PO; +PROAIR RES108 MCG/AC IN; +ZITHROMAX250 MG PO
--- NOTE | 2021-12-07 11:21 | NUR ---
PT TO ROOM VIA WC
[2021-12-07 12:04] LABS: HEMOGLOBIN 11.6 g/dl (14.0-18.0); IMMATURE GRANULOCYTES 0.3 % (0.0-5.0); MEAN CORPUSCULAR HGB 26.9 pG CALC (26.0-32.0); MEAN CORPUSCULAR HGB CONC 31.4 g/dL CAL (32.0-36.0); NEUT# 5.3 thou/uL (1.82-7.42); RED BLOOD COUNT 4.32 mill/uL (4.70-6.10); RED CELL DISTRI WIDTH 17.1 % (11.5-15.5)
[2021-12-07 12:16] LABS: MEAN CELL VOLUME 85.6 fL CALC (80.0-100.0)
[2021-12-07 12:21] LABS: BILIRUBIN, TOTAL 0.7 mg/dL (0.0-1.4); CREATININE 3.6 mg/dL (0.7-1.3); POTASSIUM 4.7 mmol/l (3.5-5.1); TOTAL PROTEIN 7.2 g/dL (6.3-8.2)
[2021-12-07] MEDS ORDERED: PREDNISONE50 MG PO (13:43)
[2021-12-07] MEDS ORDERED: TESSALON PERLE100 MG PO (13:43)
--- NOTE | 2021-12-07 18:09 | NUR ---
PT BROUGHT TO FLOOR AT 1809. VITALS TAKEN. PT SETTLED INTO BED.
--- NOTE | 2021-12-07 19:20 | NUR ---
REPORT GIVEN BY BAE LE. PATIENT ALERT AND ORIENTED, EXTREMLY HARD OF HEARING. RESP EVEN AND UNLABORED. NO S/S OF DISTRESS NOTED. IV SALINE LOCKED. FALL AND SAFTEY PRECAUTIONS IN PLACE. PLAN OF CARE DISCUSSED. PATIENT INFORMED TO CALL WITH ANY QUESTIONS OR CONCERNS.
--- NOTE | 2021-12-07 21:15 | NUR ---
STREP SWAB OBTAINED AND SENT TO LAB. BEDTIME MEDICATIONS GIVEN. PATIENT REQUESTING TYLENOL FOR GEN MILD PAIN
--- NOTE | 2021-12-07 23:39 | NUR ---
PATIENT RESTING WITH EYES CLOSED. RESP EVEN AND UNLABORED. NO S/S OF DISTRESS NOTED. FALL AND SAFTEY PRECAUTIONS IN PLACE.
[2021-12-08] VITALS (8 sets, daily range): BP systolic 112–145; BP diastolic 60–76
--- NOTE | 2021-12-08 03:56 | NUR ---
PATIENT UP TO THE BATHROOM WITH STAND BY ASSIST. PATIENT HAD A BM
--- NOTE | 2021-12-08 05:34 | NUR ---
AM MEDICATIONS GIVEN
--- NOTE | 2021-12-08 08:00 | NUR ---
SHIFT CHANGE REPORT RECEIVED FORM ELHAM BOTELLO AWAKE ALERT AND ORIENTED RESTING IN BED, BREATHING SHALLOW AND COARSE, TELE MONITOR IN PLACE, CALL WHITESIDE IN REACH AND BED LOCKED IN LOWEST POSITIO.
[2021-12-08 10:52] LABS: HEMOGLOBIN 9.7 g/dl (14.0-18.0); IMMATURE GRANULOCYTES 0.3 % (0.0-5.0); MEAN CORPUSCULAR HGB 27.1 pG CALC (26.0-32.0); MEAN CORPUSCULAR HGB CONC 31.5 g/dL CAL (32.0-36.0); NEUT# 5.55 thou/uL (1.82-7.42); RED BLOOD COUNT 3.58 mill/uL (4.70-6.10)
[2021-12-08 11:07] LABS: CREATININE 3.6 mg/dL (0.7-1.3)
[2021-12-08 11:36] LABS: HEMATOCRIT 30.8 % (39.0-50.0)
--- NOTE | 2021-12-08 12:00 | NUR ---
RELXING IN BED, BREATHING TREATMENT ORDERED, SPOUSE AT BEDSIDE, NO OTHER COMPLAINS
--- NOTE | 2021-12-08 18:04 | NUR ---
PT C/O NAUSEN AND VOMITTING, MESSAGE LEFT ON DR LENZ PHONE TO REPORT PTS CONDITION.
--- NOTE | 2021-12-08 18:16 | NUR ---
DR BARILLAS RESPONDED AND GAVE ORDERS.
[2021-12-09] VITALS (8 sets, daily range): BP systolic 112–128; BP diastolic 56–71
[2021-12-09 05:40] LABS: CREATININE 3.9 mg/dL (0.7-1.3); MAGNESIUM 2.5 mg/dL (1.6-2.3)
[2021-12-09 05:57] LABS: POTASSIUM 5.2 mmol/l (3.5-5.1)
[2021-12-10] VITALS (9 sets, daily range): BP systolic 116–135; BP diastolic 55–71
--- NOTE | 2021-12-10 05:56 | NUR ---
PATIENT REQUESTED MULTIPLE BREATHING TREATMENTS
[2021-12-10 06:06] LABS: HEMATOCRIT 32.8 % (39.0-50.0); HEMOGLOBIN 10.3 g/dl (14.0-18.0); IMMATURE GRANULOCYTES 0.5 % (0.0-5.0); MEAN CELL VOLUME 85.2 fL CALC (80.0-100.0); MEAN CORPUSCULAR HGB 26.8 pG CALC (26.0-32.0); MEAN CORPUSCULAR HGB CONC 31.4 g/dL CAL (32.0-36.0); NEUT# 5.54 thou/uL (1.82-7.42); RED BLOOD COUNT 3.85 mill/uL (4.70-6.10); RED CELL DISTRI WIDTH 16.9 % (11.5-15.5)
[2021-12-10 06:25] LABS: ALBUMIN 3.3 g/dL (3.2-5.0); BILIRUBIN, TOTAL 0.6 mg/dL (0.0-1.4); CREATININE 4.1 mg/dL (0.7-1.3)
[2021-12-10 06:26] LABS: POTASSIUM 5.3 mmol/l (3.5-5.1); TOTAL PROTEIN 5.7 g/dL (6.3-8.2)
--- NOTE | 2021-12-10 07:29 | NUR ---
RECIEVED REPORT. PT A/OX3, VERY [place]. RESPIRATIONS EVEN AND UNLABORED ON ROOM AIR. LUNG SOUNDS COURSE UPON ASCULATATION. LOOSE COUGH NOTED AT THIS TIME, PT REPORTS YELLOW SPUTUM. HEART RHYTHM NORMAL WITH TELE IN PLACE. BOWEL SOUNDS ACTIVE. #20G RAC PATENT. SKIN INTACT. PT DENIES OF ANY PAINS OR DISCOMFORTS AT THIS TIME. ALL SAFTEY PRECAUTIONS ARE IN PLACE WITH CALL LIGHT IN REACH
[2021-12-10 11:29] LABS: URINE BILIRUBIN - DIPSTICK NEGATIVE (NEGATIVE); URINE BLOOD DIPSTICK TRACE-INTACT (NEGATIVE); URINE CLARITY CLEAR; URINE COLOR YELLOW; URINE GLUCOSE - DIPSTICK NEGATIVE (NEGATIVE); URINE KETONE NEGATIVE (NEGATIVE); URINE LEUK ESTERASE NEGATIVE (Negative); URINE NITRITE - DIPSTICK NEGATIVE (Negative); URINE PH 5.5 (4.5-8.0); URINE PROTEIN - DIPSTICK NEGATIVE (NEG-TRACE); URINE UROBILINOGEN - DIPSTICK 0.2 E.U./dL (0.2)
--- NOTE | 2021-12-10 11:49 | NUR ---
PT ASSISTED BACK INTO BED. RESPIRATIONS EVEN AND UNLABORED ON ROOM AIR. #20G RAC REMAINS IN PLACE. TELE REMAINS IN PLACE. UA RECIEVED. PT DENIES OF ANY NEEDS. ALL SAFTEY PRECAUTIONS ARE IN PLACE WITH CALL LIGHT IN REACH
--- NOTE | 2021-12-10 15:25 | NUR ---
PT RESTING IN SEMI FOWLERS POSITION WITH AT BEDSIDE. RESPIRATIONS EVEN AND UNLABORED ON ROOM AIR. TELE MONITORING IN PLACE. #20G RAC NOTED. PT DENIES OF ANY NEEDS. FAN PROVIDED. ALL SAFTEY PRECAUTIONS ARE IN PLACE WITH CALL LIGHT IN REACH
--- NOTE | 2021-12-10 20:00 | NUR ---
RECEIVED REPORT FROM NURSE ELSA, ASSUMED PATIENT CARE, PATIENT IS ALERT ORINETD, PLEASANT, HARD OF HEARING. HAS SALINE LOCK ON RAC G 20 PATENT AND FLUSHES WELL, REMAINS ON TELEMETRY, STRICT I& 0. USES URINAL TO VOID, LUNG SOUND COARSE BILAT LUNG FIELD, PRODUCTIVE COUGH YELLOW, BUT MOST OF THE TIME STATED SWALLOWS PHLEGM, ACTIVE BOWEL SOUNDS, TRACE OF ANKLE EDEMA, CALL LIGHT AT REACH.
[2021-12-11] VITALS (7 sets, daily range): BP systolic 122–137; BP diastolic 55–79
--- NOTE | 2021-12-11 | NUR ---
PATIEMT APPEARS TO BE SLEEPING WITH EYES CLOSED, NOT IN DISTRESS CALL LIGHT IN REACH.
--- NOTE | 2021-12-11 04:47 | NUR ---
TECH IN ROOM, PATIENT HAS A LAB ORDER, NOT IN DISTRESS, CALL LIGHT IN REACH.
[2021-12-11 05:16] LABS: HEMATOCRIT 30.7 % (39.0-50.0); IMMATURE GRANULOCYTES 0.4 % (0.0-5.0); MEAN CELL VOLUME 84.6 fL CALC (80.0-100.0); MEAN CORPUSCULAR HGB 27.5 pG CALC (26.0-32.0); MEAN CORPUSCULAR HGB CONC 32.6 g/dL CAL (32.0-36.0); NEUT# 5.34 thou/uL (1.82-7.42); RED BLOOD COUNT 3.63 mill/uL (4.70-6.10); RED CELL DISTRI WIDTH 16.8 % (11.5-15.5)
[2021-12-11 05:33] LABS: ALBUMIN 3.1 g/dL (3.2-5.0); ALKALINE PHOSPHATASE 134 u/l (38-126); ANION GAP 18 (6-22 (CALC)); BILIRUBIN, TOTAL 0.5 mg/dL (0.0-1.4); BUN 76 mg/dL (8-23); BUN/CREATININE RATIO 20 (12-20 (CALC)); CARBON DIOXIDE 19 mmol/l (22-30); CHLORIDE 99 mmol/l (95-108); CREATININE 3.8 mg/dL (0.7-1.3); GFR FOR AFR.AMER. 18 ML/MIN (>=60 (CALC)); GFR OTHER RACES 15 ML/MIN (>=60 (CALC)); POTASSIUM 4.4 mmol/l (3.5-5.1); SGOT/AST 31 u/l (19-48); SODIUM 131 mmol/l (137-146); TOTAL PROTEIN 5.5 g/dL (6.3-8.2)
--- NOTE | 2021-12-11 07:20 | NUR ---
PT RESTING IN HIGH FOWLERS POSITION A/OX3 HARD OF HEARING. PT ASSESSMENT AND VS COMPLETED.PACED ON TELE. RESPIRATIONS NONLABORED ON ROOM AIR. BS ACTIVE. IV SITE TO RAC 20G S.L NOTED. PT DENIES ADDITIONAL NEEDSAT THE TIME ALL SAFETY PRECAIUTIONS IN PLACE CALL LIGHT IN REACH.
--- NOTE | 2021-12-11 11:55 | NUR ---
PT HARD OF HEARING. PT WILL STAY ANOTHER NIGHT PER PROVIDER. POSSIBLE DC 12/12/21.
--- NOTE | 2021-12-11 15:59 | NUR ---
PT DENIES ADDITIONAL NEEDS AT THE TIME ALL SAFETY PRECAUTIONS IN PLACE.
--- NOTE | 2021-12-11 20:00 | NUR ---
PATIENT RESTING IN BED-AWAKE ALERT AND ORIENTEDX3. PATIENT IS VERY [place]. TELE MONITOR IN PLACE AND READING PACED-60'S. SALINE LOCK TO LAC INTACT AND HEALTHY AT THIS TIME. PATIENT IS ON 1500CC FLUID RESTRICTION. FEET ELEVATED ON PILLOWS. CALL LIGHT IN REACH. WILL CONT TO MONITOR.
[2021-12-12] VITALS (7 sets, daily range): BP systolic 116–142; BP diastolic 55–67
--- NOTE | 2021-12-12 | NUR ---
PATIENT C/O SOB AND REQUESTING NEB TREATMENT AND RT WAS CAlled. treatment was given and juana kowalski instructed on use of flutter valve and using as instructed. call light in reach. willl cont to monitor.
--- NOTE | 2021-12-12 05:16 | NUR ---
PATIENT RESTING IN BED AT THIS TIME-AWAKE AND FLUID RESTRICTION MAINTAINED. 240CC PO THIS SHIFT. URINE OUTPUT 600CC OF YELLOW URINE IN URINAL. TELE MONITOR REMAINS IN PLACE AND READING PACED IN THE 60'S. FEET ARE ELEVATED ON PILLOWS. SAFETY PRECAUTIONS REINFORCED. CALL LIGHT IN REACH. WILL CONT TO MONITOR.
--- NOTE | 2021-12-12 05:30 | NUR ---
PATIENT MEDICATED WITH NEURONTIN AND OXYCONTIN ORDERED. RESTING IN BED AT THIS TIME. CALL LIGHT IN REACH. WILL CONT TO MONITOR.
[2021-12-12 05:52] LABS: ALBUMIN 3.3 g/dL (3.2-5.0); CREATININE 4.1 mg/dL (0.7-1.3); POTASSIUM 4.1 mmol/l (3.5-5.1)
--- NOTE | 2021-12-12 06:03 | NUR ---
RECIEVED CALL FROM NATASHA IN LAB WITH CRITICAL LABS-BUN-80, CREAT-4.1. AWARE OF TREND WITH DR. GRIFFIN CONSULT-WILL CONT TO MONITOR.
--- NOTE | 2021-12-12 07:28 | NUR ---
PT RESTING IN HIGH FOWLERS POSITION. PT A/OX3 HARD OF HEARING ASSESSMENT AND VS COMPLETED. HEART RHYTHM ON TELE. RESPIRATIONS UNLABORED. ROOOM AIR /COUGH IV SITE NOTED TO MERE Thakkar PT ON FLUID RESTRICTION. PT REQUEST FOR MILK OF MAG FOR BM. PT DENIES ADDITIONAL NEEDS ALL SAFETY PRECAUTIONS IN PLACE.
--- NOTE | 2021-12-12 12:43 | NUR ---
PT TO SEE SPEECH PATHOLOGIST. POSSIBLE DC.
--- NOTE | 2021-12-12 16:40 | NUR ---
PT HAS NOT BEEN DC. NEW IV IN MARLEN. ECHO DONE AT BEDSIDE.
[2021-12-13 00:10] VITALS: BP 140/66
[2021-12-13 04:17] VITALS: BP 153/72
[2021-12-13 05:03] LABS: HEMATOCRIT 31.6 % (39.0-50.0); HEMOGLOBIN 10.2 g/dl (14.0-18.0); IMMATURE GRANULOCYTES 0.5 % (0.0-5.0); MEAN CELL VOLUME 83.8 fL CALC (80.0-100.0); MEAN CORPUSCULAR HGB 27.1 pG CALC (26.0-32.0); MEAN CORPUSCULAR HGB CONC 32.3 g/dL CAL (32.0-36.0); NEUT# 6.86 thou/uL (1.82-7.42); RED BLOOD COUNT 3.77 mill/uL (4.70-6.10)
[2021-12-13 05:35] LABS: CREATININE 3.8 mg/dL (0.7-1.3); MAGNESIUM 2.8 mg/dL (1.6-2.3); POTASSIUM 4.2 mmol/l (3.5-5.1)
--- NOTE | 2021-12-13 06:21 | NUR ---
RECEIVED CALL FROM ZULEMA IN L;[facility] WITH CRITICAL LAB RESULT OF [facility]-[id number]. CALL PLACED TO DR. BARILLAS AND MESSAGE LEFT WITH CRITICAL LAB RESULTS. AWAIT CALL BACK. WILL CONT TO MONITOR.
--- NOTE | 2021-12-13 07:55 | NUR ---
RECIEVED REPORT. PT RESTING IN SEMI FOWLERS POSITION. PT A/OX3 BUT [place]. RESPIRATION EVEM AND UNLABORED ON ROOM AIR. CRACKLES NOTED UPON ASCULTATION. HEART RHYTHM NORMAL WITH TELE IN PLACE, PACED PER ER . #20G MAR[place] PATENT. SKIN INTACT.1+ EDEMA NOTED TO BLE. PT DENIES OF ANY PAINS OR DISCOMFORTS. ALL SAFTEY PRECAUTIONS ARE IN PLACE WITH CALL LIGHT IN REACH.
[2021-12-13 08:23] VITALS: BP 170/68
--- NOTE | 2021-12-13 12:00 | NUR ---
PT RESTING IN RECYLINER WITH AT BEDSIDE. TELE MONITORING IN PLACE. IV PATENT NOTED. PT INFORMED OF POSSIBLE DC. VERBALIZED UNDERSTANDING
[2021-12-13] MEDS ORDERED: MEDDOSEPAK PO (12:01)
[2021-12-13] MEDS ORDERED: LEVOFLOXACIN500MG PO (12:07)
[2021-12-13] MEDS ORDERED: TESSALON PERLE100 MG PO (12:07)
[2021-12-13 12:52] VITALS: BP 130/65
--- NOTE | 2021-12-13 13:01 | NUR ---
PT AND EDUCATED ON DC INSTRUCTIONS AND NEW MEDICAITONS. BOTH VERBLAIZED UNDERSTANDING. IV REMOVED WITH CATH INTACT. TELE REMOVED, ER INFORMED.
--- NOTE | 2021-12-13 13:15 | NUR ---
Discharge instructions given. Patient verbalizes understanding of same. Discharged in stable condition via Wheelchair to Home with family. All belongings sent with pt.
== END 2021-12-13 13:12 | DRG 291 ==
LOC: ED 11:21 → ED-I 12:53 → ED 15:13 → MS2 15:14
PROVIDERS: Emergency Medicine; Internal Medicine Nephrology; Nurse Practitioner; ADMIT Internal Medicine; ATTEND Internal Medicine
DX: I13.0 Hypertensive heart and chronic kidney disease with heart failure and stage 1 through stage 4 chronic kidney disease, or unspecified chronic kidney disease (principal); I50.33 Acute on chronic diastolic (congestive) heart failure; E87.1 Hypo-osmolality and hyponatremia; I48.19 Other persistent atrial fibrillation; J45.901 Unspecified asthma with (acute) exacerbation; N17.9 Acute kidney failure, unspecified; N18.4 Chronic kidney disease, stage 4 (severe); E87.20 Acidosis, unspecified; E11.22 Type 2 diabetes mellitus with diabetic chronic kidney disease; R09.02 Hypoxemia; E03.9 Hypothyroidism, unspecified; E87.5 Hyperkalemia; D63.1 Anemia in chronic kidney disease; I25.9 Chronic ischemic heart disease, unspecified; I25.5 Ischemic cardiomyopathy; I25.2 Old myocardial infarction; B96.5 Pseudomonas (aeruginosa) (mallei) (pseudomallei) as the cause of diseases classified elsewhere; Z95.1 Presence of aortocoronary bypass graft; Z95.5 Presence of coronary angioplasty implant and graft; Z95.2 Presence of prosthetic heart valve; Z95.0 Presence of cardiac pacemaker; Z79.01 Long term (current) use of anticoagulants; Z79.84 Long term (current) use of oral hypoglycemic drugs; Z87.891 Personal history of nicotine dependence; Z79.51 Long term (current) use of inhaled steroids; Z20.822 Contact with and (suspected) exposure to COVID-19
CPT/HCPCS: J1756; J1956

== ENCOUNTER 2021-12-17 12:44 | Observation (INO) | payer MEDICARE ==
[~2021-12-17] VITALS: Ht 182.9 cm; Wt 87.0 kg
[~2021-12-17 12:44] MED LIST changes: +LEVOFLOXACIN500MG PO; +MEDDOSEPAK PO; +PREDNISONE50 MG PO; +TESSALON PERLE100 MG PO
[2021-12-17 13:24] LABS: HEMOGLOBIN 10.3 g/dl (14.0-18.0); IMMATURE GRANULOCYTES 0.6 % (0.0-5.0); MEAN CELL VOLUME 85.8 fL CALC (80.0-100.0); MEAN CORPUSCULAR HGB 27.6 pG CALC (26.0-32.0); MEAN CORPUSCULAR HGB CONC 32.2 g/dL CAL (32.0-36.0); NEUT# 8.05 thou/uL (1.82-7.42); RED BLOOD COUNT 3.73 mill/uL (4.70-6.10); RED CELL DISTRI WIDTH 17.6 % (11.5-15.5)
[2021-12-17 13:29] LABS: ALBUMIN 3.4 g/dL (3.2-5.0); CREATININE 3.3 mg/dL (0.7-1.3); TOTAL PROTEIN 5.8 g/dL (6.3-8.2)
[2021-12-17 13:39] LABS: BILIRUBIN, TOTAL 0.8 mg/dL (0.0-1.4); POTASSIUM 5.2 mmol/l (3.5-5.1)
[2021-12-17 15:31] LABS: URINE BILIRUBIN - DIPSTICK NEGATIVE (NEGATIVE); URINE BLOOD DIPSTICK SMALL (NEGATIVE); URINE COLOR YELLOW; URINE GLUCOSE - DIPSTICK >=1000 mg/dL (NEGATIVE); URINE KETONE NEGATIVE (NEGATIVE); URINE LEUK ESTERASE NEGATIVE (NEGATIVE); URINE PROTEIN - DIPSTICK TRACE mg/dL (NEG-TRACE); URINE UROBILINOGEN - DIPSTICK 0.2 E.U./dL (0.2)
[2021-12-17 15:36] LABS: URINE NITRITE - DIPSTICK NEGATIVE (Negative)
[2021-12-17 15:44] LABS: URINE WBC 0-2 WBC/hpf (0-5)
[2021-12-17 17:30] VITALS: BP 136/70
[2021-12-17 18:00] VITALS: BP 138/69
[2021-12-17 18:30] VITALS: BP 138/70
[2021-12-17 23:44] VITALS: BP 116/52
[2021-12-18 04:07] VITALS: BP 137/60
[2021-12-18 06:17] LABS: CREATININE 3.1 mg/dL (0.7-1.3); MAGNESIUM 2.5 mg/dL (1.6-2.3); POTASSIUM 4.3 mmol/l (3.5-5.1)
[2021-12-18 07:00] VITALS: BP 156/77
[2021-12-18 07:03] VITALS: BP 133/58
[2021-12-18 10:37] VITALS: BP 135/61
[2021-12-18] MEDS ORDERED: SINGULAIR10 MG PO (11:35)
[2021-12-18 14:33] VITALS: BP 130/66
[2021-12-18 19:22] VITALS: BP 130/59
[2021-12-19 00:12] VITALS: BP 136/66
[2021-12-19 04:31] VITALS: BP 112/44
[2021-12-19 05:29] LABS: HEMATOCRIT 33.8 % (39.0-50.0); HEMOGLOBIN 10.9 g/dl (14.0-18.0); IMMATURE GRANULOCYTES 0.5 % (0.0-5.0); MEAN CELL VOLUME 84.9 fL CALC (80.0-100.0); MEAN CORPUSCULAR HGB 27.4 pG CALC (26.0-32.0); MEAN CORPUSCULAR HGB CONC 32.2 g/dL CAL (32.0-36.0); NEUT# 7.65 thou/uL (1.82-7.42); RED BLOOD COUNT 3.98 mill/uL (4.70-6.10); RED CELL DISTRI WIDTH 18.2 % (11.5-15.5)
[2021-12-19 05:46] LABS: ALBUMIN 2.8 g/dL (3.2-5.0); CREATININE 3.2 mg/dL (0.7-1.3); MAGNESIUM 2.4 mg/dL (1.6-2.3); POTASSIUM 4.1 mmol/l (3.5-5.1)
[2021-12-19 06:34] VITALS: BP 108/51
[2021-12-19 10:10] VITALS: BP 131/57
[2021-12-19 14:28] VITALS: BP 126/61
[2021-12-19 19:00] VITALS: BP 129/64
[2021-12-20] VITALS: BP 130/63
[2021-12-20 00:06] VITALS: BP 130/63
[2021-12-20 04:00] VITALS: BP 149/70
[2021-12-20 04:04] VITALS: BP 149/70
[2021-12-20 06:05] LABS: CREATININE 2.9 mg/dL (0.7-1.3); MAGNESIUM 2.2 mg/dL (1.6-2.3); POTASSIUM 4.3 mmol/l (3.5-5.1)
[2021-12-20 07:54] VITALS: BP 141/64
[2021-12-20 09:19] VITALS: BP 141/64
[2021-12-20] MEDS ORDERED: BUMETANIDE0.5 M1 PO (10:37)
== END 2021-12-20 13:45 ==
LOC: ED 12:44 → ED-I 15:45 → ED 16:07 → MS2 16:08
PROVIDERS: Family Medicine; Nurse Practitioner; ADMIT Internal Medicine; ATTEND Internal Medicine
DX: I13.0 Hypertensive heart and chronic kidney disease with heart failure and stage 1 through stage 4 chronic kidney disease, or unspecified chronic kidney disease (principal); I50.33 Acute on chronic diastolic (congestive) heart failure; N17.9 Acute kidney failure, unspecified; J96.01 Acute respiratory failure with hypoxia; I48.19 Other persistent atrial fibrillation; E11.22 Type 2 diabetes mellitus with diabetic chronic kidney disease; N18.4 Chronic kidney disease, stage 4 (severe); E03.9 Hypothyroidism, unspecified; S40.021A Contusion of right upper arm, initial encounter; E87.5 Hyperkalemia; E87.1 Hypo-osmolality and hyponatremia; E87.20 Acidosis, unspecified; J45.909 Unspecified asthma, uncomplicated; N40.0 Benign prostatic hyperplasia without lower urinary tract symptoms; K21.9 Gastro-esophageal reflux disease without esophagitis; E78.5 Hyperlipidemia, unspecified; D63.1 Anemia in chronic kidney disease; I25.5 Ischemic cardiomyopathy; I25.2 Old myocardial infarction; W18.09XA Striking against other object with subsequent fall, initial encounter; Y92.002 Bathroom of unspecified non-institutional (private) residence as the place of occurrence of the external cause; Z95.1 Presence of aortocoronary bypass graft; Z95.5 Presence of coronary angioplasty implant and graft; Z79.01 Long term (current) use of anticoagulants; Z87.891 Personal history of nicotine dependence; Z95.2 Presence of prosthetic heart valve; Z95.0 Presence of cardiac pacemaker; Z91.81 History of falling; Z20.822 Contact with and (suspected) exposure to COVID-19

== ENCOUNTER 2022-01-16 20:33 | Inpatient (IN) | payer MEDICARE ==
[~2022-01-16] VITALS: Ht 182.9 cm; Wt 84.2 kg
[2022-01-16] VITALS (9 sets, daily range): BP systolic 123–146; BP diastolic 55–77
[~2022-01-16 20:33] MED LIST changes: +BUMETANIDE0.5 M1 PO; +SINGULAIR10 MG PO
[2022-01-16 21:02] LABS: HEMATOCRIT 32.7 % (39.0-50.0); HEMOGLOBIN 10.5 g/dl (14.0-18.0); IMMATURE GRANULOCYTES 0.5 % (0.0-5.0); MEAN CELL VOLUME 84.7 fL CALC (80.0-100.0); MEAN CORPUSCULAR HGB 27.2 pG CALC (26.0-32.0); MEAN CORPUSCULAR HGB CONC 32.1 g/dL CAL (32.0-36.0); NEUT# 7.58 thou/uL (1.82-7.42); RED BLOOD COUNT 3.86 mill/uL (4.70-6.10); RED CELL DISTRI WIDTH 17.5 % (11.5-15.5)
[2022-01-16 21:12] LABS: BILIRUBIN, TOTAL 0.7 mg/dL (0.0-1.4); CREATININE 3.5 mg/dL (0.7-1.3); POTASSIUM 5.1 mmol/l (3.5-5.1)
[2022-01-16 21:14] LABS: ALBUMIN 3.8 g/dL (3.2-5.0); TOTAL PROTEIN 7.2 g/dL (6.3-8.2)
[2022-01-16 21:29] LABS: URINE BILIRUBIN - DIPSTICK NEGATIVE (NEGATIVE); URINE BLOOD DIPSTICK NEGATIVE (NEGATIVE); URINE COLOR YELLOW; URINE GLUCOSE - DIPSTICK NEGATIVE (NEGATIVE); URINE KETONE TRACE mg/dL (NEGATIVE); URINE LEUK ESTERASE NEGATIVE (NEGATIVE); URINE PROTEIN - DIPSTICK 100 mg/dL (NEG-TRACE); URINE SPECIFIC GRAVITY 1.015; URINE UROBILINOGEN - DIPSTICK 0.2 E.U./dL (0.2)
[2022-01-16 21:30] LABS: URINE NITRITE - DIPSTICK NEGATIVE (Negative); URINE RBC 0-2 RBC/hpf (0-5)
[2022-01-16 21:31] LABS: URINE WBC 0-2 WBC/hpf (0-5)
[2022-01-17 04:35] VITALS: BP 130/59
[2022-01-17 05:18] LABS: HEMOGLOBIN 9.5 g/dl (14.0-18.0); IMMATURE GRANULOCYTES 0.4 % (0.0-5.0); MEAN CELL VOLUME 85.2 fL CALC (80.0-100.0); MEAN CORPUSCULAR HGB CONC 31.7 g/dL CAL (32.0-36.0); NEUT# 4.53 thou/uL (1.82-7.42); RED BLOOD COUNT 3.52 mill/uL (4.70-6.10); RED CELL DISTRI WIDTH 17.8 % (11.5-15.5)
[2022-01-17 05:34] LABS: CREATININE 3.6 mg/dL (0.7-1.3); POTASSIUM 5.3 mmol/l (3.5-5.1)
[2022-01-17 06:31] VITALS: BP 113/52
[2022-01-17 07:21] VITALS: BP 113/52
[2022-01-17 14:50] VITALS: BP 104/45
[2022-01-17 18:56] VITALS: BP 116/58
[2022-01-18 04:24] VITALS: BP 102/48
[2022-01-18 05:25] LABS: HEMATOCRIT 28.7 % (39.0-50.0); HEMOGLOBIN 9.2 g/dl (14.0-18.0); MEAN CELL VOLUME 84.7 fL CALC (80.0-100.0); MEAN CORPUSCULAR HGB 27.1 pG CALC (26.0-32.0); MEAN CORPUSCULAR HGB CONC 32.1 g/dL CAL (32.0-36.0); RED BLOOD COUNT 3.39 mill/uL (4.70-6.10); RED CELL DISTRI WIDTH 17.5 % (11.5-15.5)
[2022-01-18 06:00] LABS: CREATININE 3.7 mg/dL (0.7-1.3)
[2022-01-18 06:13] LABS: POTASSIUM 5.9 mmol/l (3.5-5.1)
[2022-01-18 07:40] VITALS: BP 117/60
[2022-01-18 09:36] VITALS: BP 117/60
[2022-01-18 12:11] LABS: IMMATURE GRANULOCYTES 0.4 % (0.0-5.0); MEAN CELL VOLUME 84.1 fL CALC (80.0-100.0); MEAN CORPUSCULAR HGB CONC 32.1 g/dL CAL (32.0-36.0); NEUT# 9.22 thou/uL (1.82-7.42); RED BLOOD COUNT 3.33 mill/uL (4.70-6.10); RED CELL DISTRI WIDTH 17.5 % (11.5-15.5)
[2022-01-18 13:03] LABS: ALBUMIN 3.2 g/dL (3.2-5.0); CREATININE 3.7 mg/dL (0.7-1.3)
[2022-01-18 13:05] LABS: BILIRUBIN, TOTAL 0.4 mg/dL (0.0-1.4); POTASSIUM 5.6 mmol/l (3.5-5.1); TOTAL PROTEIN 5.7 g/dL (6.3-8.2)
[2022-01-18 16:51] VITALS: BP 122/52
[2022-01-18 19:00] VITALS: BP 116/60
[2022-01-18 19:35] VITALS: BP 116/60
[2022-01-19 04:10] VITALS: BP 130/58
[2022-01-19 05:07] LABS: HEMOGLOBIN 8.8 g/dl (14.0-18.0); MEAN CELL VOLUME 83.6 fL CALC (80.0-100.0); MEAN CORPUSCULAR HGB 27.2 pG CALC (26.0-32.0); MEAN CORPUSCULAR HGB CONC 32.6 g/dL CAL (32.0-36.0); RED BLOOD COUNT 3.23 mill/uL (4.70-6.10); RED CELL DISTRI WIDTH 17.9 % (11.5-15.5)
[2022-01-19 05:34] LABS: CREATININE 4.2 mg/dL (0.7-1.3); MAGNESIUM 2.5 mg/dL (1.6-2.3); POTASSIUM 4.7 mmol/l (3.5-5.1)
[2022-01-19 08:13] VITALS: BP 121/60
[2022-01-19 16:45] VITALS: BP 123/61
[2022-01-19 18:59] VITALS: BP 136/63
[2022-01-20 04:18] VITALS: BP 126/58
[2022-01-20 05:33] LABS: HEMATOCRIT 28.6 % (39.0-50.0); HEMOGLOBIN 9.1 g/dl (14.0-18.0); MEAN CELL VOLUME 83.9 fL CALC (80.0-100.0); MEAN CORPUSCULAR HGB 26.7 pG CALC (26.0-32.0); MEAN CORPUSCULAR HGB CONC 31.8 g/dL CAL (32.0-36.0); RED BLOOD COUNT 3.41 mill/uL (4.70-6.10); RED CELL DISTRI WIDTH 17.8 % (11.5-15.5)
[2022-01-20 05:58] LABS: ALBUMIN 2.7 g/dL (3.2-5.0); CARBON DIOXIDE 21 mmol/l (22-30); CHLORIDE 108 mmol/l (95-108); CREATININE 3.5 mg/dL (0.7-1.3); GFR FOR AFR.AMER. 20 ML/MIN (>=60 (CALC)); GFR OTHER RACES 17 ML/MIN (>=60 (CALC)); MAGNESIUM 2.4 mg/dL (1.6-2.3); POTASSIUM 4.2 mmol/l (3.5-5.1)
[2022-01-20 06:21] LABS: SODIUM 136 mmol/l (137-146)
[2022-01-20 06:39] LABS: BUN 89 mg/dL (8-23)
[2022-01-20 07:17] VITALS: BP 141/71
[2022-01-20 14:45] VITALS: BP 139/64
[2022-01-20 18:37] VITALS: BP 138/64
[2022-01-21 03:54] VITALS: BP 136/67
[2022-01-21 05:20] LABS: HEMATOCRIT 29.6 % (39.0-50.0); HEMOGLOBIN 9.6 g/dl (14.0-18.0); MEAN CELL VOLUME 83.9 fL CALC (80.0-100.0); MEAN CORPUSCULAR HGB 27.2 pG CALC (26.0-32.0); MEAN CORPUSCULAR HGB CONC 32.4 g/dL CAL (32.0-36.0); RED BLOOD COUNT 3.53 mill/uL (4.70-6.10); RED CELL DISTRI WIDTH 18.1 % (11.5-15.5)
[2022-01-21 05:49] LABS: ALBUMIN 2.7 g/dL (3.2-5.0); CREATININE 3.4 mg/dL (0.7-1.3); POTASSIUM 4.1 mmol/l (3.5-5.1)
[2022-01-21 06:29] VITALS: BP 142/60
[2022-01-21 15:18] VITALS: BP 126/57
[2022-01-21 18:59] VITALS: BP 130/59
[2022-01-22] VITALS (7 sets, daily range): BP systolic 128–143; BP diastolic 54–62
[2022-01-22 05:24] LABS: ALBUMIN 2.6 g/dL (3.2-5.0); CREATININE 3.2 mg/dL (0.7-1.3); MAGNESIUM 2.3 mg/dL (1.6-2.3); POTASSIUM 4.2 mmol/l (3.5-5.1)
[2022-01-23] VITALS (7 sets, daily range): BP systolic 120–140; BP diastolic 48–67
[2022-01-23 06:09] LABS: ALBUMIN 2.7 g/dL (3.2-5.0); CREATININE 3.2 mg/dL (0.7-1.3)
[2022-01-24 04:00] VITALS: BP 135/62
[2022-01-24 04:06] VITALS: BP 135/62
[2022-01-24 06:35] LABS: ALBUMIN 2.6 g/dL (3.2-5.0); CREATININE 3.2 mg/dL (0.7-1.3); POTASSIUM 4.3 mmol/l (3.5-5.1)
[2022-01-24 06:41] VITALS: BP 138/62
[2022-01-24 09:22] VITALS: BP 132/50
[2022-01-24 11:42] VITALS: BP 134/57
== END 2022-01-24 14:55 | DRG 177 ==
LOC: ED 20:33 → MS2 21:43
PROVIDERS: Family Medicine; Internal Medicine; Internal Medicine Nephrology; Nurse Practitioner Family; ADMIT Internal Medicine; ATTEND Internal Medicine
DX: J15.6 Pneumonia due to other Gram-negative bacteria (principal); I50.23 Acute on chronic systolic (congestive) heart failure; N17.0 Acute kidney failure with tubular necrosis; I13.0 Hypertensive heart and chronic kidney disease with heart failure and stage 1 through stage 4 chronic kidney disease, or unspecified chronic kidney disease; E87.1 Hypo-osmolality and hyponatremia; E87.20 Acidosis, unspecified; N18.4 Chronic kidney disease, stage 4 (severe); I48.19 Other persistent atrial fibrillation; J91.8 Pleural effusion in other conditions classified elsewhere; N50.89 Other specified disorders of the male genital organs; E11.22 Type 2 diabetes mellitus with diabetic chronic kidney disease; E86.9 Volume depletion, unspecified; I25.5 Ischemic cardiomyopathy; E87.5 Hyperkalemia; E78.5 Hyperlipidemia, unspecified; K42.9 Umbilical hernia without obstruction or gangrene; E03.9 Hypothyroidism, unspecified; N40.0 Benign prostatic hyperplasia without lower urinary tract symptoms; I25.2 Old myocardial infarction; Z95.1 Presence of aortocoronary bypass graft; Z87.01 Personal history of pneumonia (recurrent); Z95.5 Presence of coronary angioplasty implant and graft; Z87.891 Personal history of nicotine dependence; Z95.2 Presence of prosthetic heart valve; Z95.0 Presence of cardiac pacemaker; Z79.84 Long term (current) use of oral hypoglycemic drugs; Z79.01 Long term (current) use of anticoagulants; Z20.822 Contact with and (suspected) exposure to COVID-19; E11.65 Type 2 diabetes mellitus with hyperglycemia; D63.1 Anemia in chronic kidney disease
CPT/HCPCS: J0692; J3370; Q5106 EC; S0164